=== PATIENT | female | born 1970 | race Caucasian/White ===

== ENCOUNTER → 2016-10-22 | Outpatient (CLI) | payer OTHER ==
--- NOTE | 2016-10-22 12:13 | REP ---
PELVIC ULTRASOUND: Real-time sonographic evaluation of the pelvis performed utilizing transabdominal and endovaginal technique. Bladder measures 4.5 x 6.0 x 3.0 cm. Uterus measures 8.8 x 3.7 x 4.7 cm. Endometrial stripe measures 10 mm. There is no endometrial fluid collection. No myometrial abnormalities are seen. The ovaries appear normal in size and echotexture, right ovary measuring 3.4 x 2.3 x 3.2 cm and left ovary 3.5 x 1.6 x 2.9 cm. There is no adnexal mass or free fluid. Blood flow is seen in each ovary with duplex Doppler evaluation, no torsion. RI of the right ovary 0.61 and left ovary 0.53. There is mild fluid in the cervical canal. IMPRESSION: Essentially negative pelvic ultrasound as above. There is mild fluid in the cervical canal. Signed by Deng Mcnamara MD 10/22/2016 01:30 P
== END ==
LOC: M RAD 10:14
PROVIDERS: ATTEND Obstetrics & Gynecology
DX: D25.9 Leiomyoma of uterus, unspecified (principal)

== ENCOUNTER 2018-02-13 17:02 | Emergency (ER) | payer OTHER ==
[2018-02-13 19:03] LABS: BASO # 0.1 10^3/uL (0.0-0.2); BASO % 0.6 % (0.0-1.0); EOS # 0.2 10^3/uL (0.0-0.50); EOS % 1.3 % (0.0-3.0); HEMATOCRIT 40.6 % (36.0-47.0); HEMOGLOBIN 13.7 g/dl (12.0-15.5); IMMATURE GRANULOCYTE % 0.3 % (0-3.0); LYMPH # 2.2 10^3/uL (1.5-4.5); LYMPH % 17.9 % (24.0-44.0); MEAN CORPUSCULAR HEMOGLOBIN 30.2 pg (27.0-33.0); MEAN CORPUSCULAR HGB CONC 33.7 g/dl (32.0-36.5); MEAN CORPUSCULAR VOLUME 89.4 fl (80.0-96.0); MONO # 0.8 10^3/uL (0.0-0.8); MONO % 6.6 % (0.0-5.0); NEUTROPHILS # 9.1 10^3/uL (1.8-7.7); NEUTROPHILS % 73.3 % (36.0-66.0); PLATELET COUNT, AUTOMATED 191 10^3/uL (150-450); RED BLOOD COUNT 4.54 10^6/uL (4.00-5.40); RED CELL DISTRIBUTION WIDTH 11.8 % (11.5-14.5); WHITE BLOOD COUNT 12.4 10^3/uL (4.0-10.0)
[2018-02-13 19:22] LABS: CONTROL LINE HCG INT CTR LINE PRESENT; HCG, SERUM QUALITATIVE NEGATIVE (NEGATIVE)
[2018-02-13 19:27] LABS: ANION GAP 7 MEQ/L (8-16); BLOOD UREA NITROGEN 15 MG/DL (7-18); CALCIUM LEVEL 8.6 MG/DL (8.5-10.1); CARBON DIOXIDE LEVEL 28 MEQ/L (21-32); CHLORIDE LEVEL 107 MEQ/L (98-107); CK-MB VALUE MASS < 1.0 NG/ML (<3.6); CPK CREATINE PHOSPHOKINASE 76 U/L (26-192); CREATININE FOR GFR 0.78 MG/DL (0.55-1.30); GLOMERULAR FILTRATION RATE > 60.0 (>58); GLUCOSE, FASTING 83 MG/DL (70-100); MAGNESIUM LEVEL 2.2 MG/DL (1.8-2.4); MB/CK RELATIVE INDEX 1.31 (< OR =4); POTASSIUM SERUM 3.4 MEQ/L (3.5-5.1); SODIUM LEVEL 142 MEQ/L (136-145); TROPONIN I < 0.02 NG/ML (< 0.10)
== END 2018-02-13 20:45 | disposition home or self-care (01) ==
LOC: M ED 17:02
DX: R20.2 Paresthesia of skin (principal); R00.1 Bradycardia, unspecified; Z79.899 Other long term (current) drug therapy
CPT/HCPCS: 70450

== ENCOUNTER → 2018-10-24 | Outpatient (REF) | payer OTHER ==
[~2018-10-24] MED LIST: MULTCAP8 PO
== END ==
LOC: M SFHCLERA 19:14
PROVIDERS: ATTEND Physician Assistant
DX: R39.9 Unspecified symptoms and signs involving the genitourinary system (principal)

== ENCOUNTER → 2020-05-16 | Outpatient (CLI) | payer OTHER | LOC: M LABSMTC 11:30 | PROVIDERS: ATTEND Family Medicine | DX: Z11.59 Encounter for screening for other viral diseases (principal); Z20.828 Contact with and (suspected) exposure to other viral communicable diseases ==

== ENCOUNTER 2020-06-03 08:20 | Day surgery (SDC) | payer OTHER ==
[~2020-06-03 08:20] MED LIST changes: +ACETAMINOPHEN 650 MG SUPP ONE; +KETOROLAC 60MG 2ML VIAL ONE; +LIDOCAINE 2% 100MG/5ML SDV (FOR ANES.) ONE; +MIDAZOLAM INJ 2MG/2ML VIAL (J2250 PER 1MG) ONE; +ONDANSETRON 4MG/2ML VIAL ONE; +dexameTHASONE 4 MG/ML 1ML VIAL (J1100 PER 1MG) ONE; +propofoL 200 MG/20 ML VIAL ONE
[2020-06-03] MEDS ORDERED: ONDANSETRON 4MG/2ML VIAL As Ordered ONE (09:00)
[2020-06-03] MEDS ORDERED: LIDOCAINE 2% 100MG/5ML SDV (FOR ANES.) As Ordered ONE (09:00)
[2020-06-03] MEDS ORDERED: MIDAZOLAM INJ 2MG/2ML VIAL (J2250 PER 1MG) As Ordered ONE (09:00)
[2020-06-03] MEDS ORDERED: propofoL 200 MG/20 ML VIAL As Ordered ONE (09:00)
[2020-06-03] MEDS ORDERED: dexameTHASONE 4 MG/ML 1ML VIAL (J1100 PER 1MG) As Ordered ONE (09:00)
[2020-06-03] MEDS ORDERED: KETOROLAC 60MG 2ML VIAL As Ordered ONE (10:30)
--- NOTE | 2020-07-25 10:44 | RO ---
DATE OF PROCEDURE: 06/03/2020 PREOPERATIVE DIAGNOSIS: Abnormal uterine bleeding. POSTOPERATIVE DIAGNOSIS: Abnormal uterine bleeding. OPERATION PROPOSED: Hysteroscopy, dilatation and curettage, and Pap smear. OPERATION PERFORMED: Hysteroscopy, dilatation and curettage, and Pap smear. ANESTHESIA: General. ESTIMATED BLOOD LOSS: Less than 20 mL. SURGEON: Gabriel Freeman MD WELL TREATMENT OFFSIDER: Dr. Glenn Morgan PROCEDURE IN DETAIL: After an adequate time-out, prepped and draped in the lithotomy position. Sotomayor catheter in the bladder draining clear urine. Acetaminophen suppository 1300 mg per rectum. Weighted speculum in the vagina. Single-toothed tenaculum on the anterior lip of the cervix. A cervical Pap smear was performed and sent off to pathology under a separate cover. Reprepping and draping, again, with adequate time-out. Weighted speculum in the vagina. Single-toothed tenaculum on the anterior lip of the cervix. The patient has significant cervical stenosis. We were able to, using the smallest dilator, dilate up the cervix and blackish material came out because of the cervical stenosis. The patient was sounded to a depth of 9 cm. We were able to dilate up to a Hegar 7. The hysteroscope was introduced. Panoramic review revealed a fundal area which was normal, very thin endometrium. Ostium on the right and on the left was normal. Anterior and posterior suero were normal. On the way out, we noticed endocervical polyp in the mid section of the cervix. This was removed and sent to pathology under a separate cover. Curettage of the uterine cavity was done and that was sent under a separate cover. The estimated amount of fluids used was 125 mL in and 125 mL out. All instruments were removed. The Sotomayor catheter was removed. The uterus was replaced in anatomical position. The patient was sent back to the recovery room in good condition. BETZAIDA
== END 2020-06-03 11:30 | disposition home or self-care (01) ==
LOC: M SDC 08:20
PROVIDERS: ATTEND Obstetrics & Gynecology
DX: N92.6 Irregular menstruation, unspecified (principal); N88.8 Other specified noninflammatory disorders of cervix uteri; N93.9 Abnormal uterine and vaginal bleeding, unspecified; N84.1 Polyp of cervix uteri; Z79.899 Other long term (current) drug therapy; Z12.4 Encounter for screening for malignant neoplasm of cervix
CPT/HCPCS: 57410; 58558; 80048; 84702; 85027; 88305; G0123; J1100; J1885; J2250; J2405

== ENCOUNTER → 2020-06-03 | Outpatient (REF) | payer OTHER ==
[2020-06-05 08:10] LABS: HEMATOCRIT 38.9 % (36.0-47.0); HEMOGLOBIN 12.4 g/dl (12.0-15.5); MEAN CORPUSCULAR HEMOGLOBIN 27.8 pg (27.0-33.0); MEAN CORPUSCULAR HGB CONC 31.9 g/dl (32.0-36.5); MEAN CORPUSCULAR VOLUME 87.2 fl (80.0-96.0); PLATELET COUNT, AUTOMATED 209 10^3/uL (150-450); RED BLOOD COUNT 4.46 10^6/uL (4.00-5.40); WHITE BLOOD COUNT 6.9 10^3/uL (4.0-10.0)
[2020-06-07 23:09] LABS: BLOOD UREA NITROGEN 13 MG/DL (7-18); CARBON DIOXIDE LEVEL 28 MEQ/L (21-32); CHLORIDE LEVEL 109 MEQ/L (98-107); CREATININE FOR GFR 0.82 MG/DL (0.55-1.30); GLOMERULAR FILTRATION RATE > 60.0 (>58); GLUCOSE, FASTING 85 MG/DL (70-100); HCG, SERUM QUANTITATIVE < 1.0 MIU/ML; POTASSIUM SERUM 4.2 MEQ/L (3.5-5.1); SODIUM LEVEL 141 MEQ/L (136-145)
== END ==
LOC: M LAB REF 08:00
PROVIDERS: ATTEND Obstetrics & Gynecology
DX: N92.6 Irregular menstruation, unspecified (principal); N88.8 Other specified noninflammatory disorders of cervix uteri

== ENCOUNTER → 2020-12-24 | Outpatient (REF) | payer OTHER ==
[~2020-12-24] MED LIST changes: +ACET-683 PO; -ACETAMINOPHEN 650 MG SUPP ONE; +ALIG4CAP PO; +CHOL20002 PO; +DULO1CAP4 PO; +FERR325T3 PO; -KETOROLAC 60MG 2ML VIAL ONE; -LIDOCAINE 2% 100MG/5ML SDV (FOR ANES.) ONE; +MELO15TA28 PO; -MIDAZOLAM INJ 2MG/2ML VIAL (J2250 PER 1MG) ONE; -ONDANSETRON 4MG/2ML VIAL ONE; -dexameTHASONE 4 MG/ML 1ML VIAL (J1100 PER 1MG) ONE; -propofoL 200 MG/20 ML VIAL ONE
[2020-12-24 15:50] LABS: PLATELET COUNT, AUTOMATED 253 10^3/uL (150-450)
[2020-12-24 16:04] LABS: INR 0.96
[2020-12-24 16:06] LABS: COLLAGEN EPINEPHRINE 139 SECONDS (74-162)
== END ==
LOC: M LAB REF 15:16
PROVIDERS: ATTEND Physical Medicine & Rehabilitation
DX: M43.16 Spondylolisthesis, lumbar region (principal)

== ENCOUNTER → 2021-01-08 | Outpatient (CLI) | payer OTHER ==
[2021-01-08 11:44] LABS: FREE T4 0.82 NG/DL (0.76-1.46); THYROID STIMULATING HORMONE 1.44 uIU/ML (0.358-3.740)
[2021-01-08 11:45] LABS: FOLATE 11.9 NG/ML
== END ==
LOC: M LAB 10:11
PROVIDERS: ATTEND Internal Medicine Gastroenterology
DX: D50.9 Iron deficiency anemia, unspecified (principal)

== ENCOUNTER → 2021-03-10 | Day surgery (SDC) | payer OTHER ==
[~2021-03-10] VITALS: Ht 152.4 cm; Wt 58.1 kg
[~2021-03-10] MED LIST changes: +D31000TA2 PO; +FAMO40TA3 PO; +FERR325T19 PO; +LIDOCAINE 2% 100MG/5ML SDV (FOR ANES.) As Ordered ONE; +NS 1,000 ML IV ONE; +fentaNYL 100 MCG/2 ML INJECTION (J3010) As Ordered ONE; +propofoL 200 MG/20 ML VIAL As Ordered ONE
--- NOTE | 2021-03-10 12:59 | ROOR ---
Patient Name: Minal Gallegos Procedure Date: 03/10/2021 12:47 PM Date of : 1970 Age: 50 Room: [facility] Gender: Female Note Status: Finalized Procedure: Upper GI endoscopy Indications: Iron deficiency anemia Providers: Viral Bustillos MD Referring MD: Ace Olmedo Do Requesting Provider: Medicines: Monitored Anesthesia Care Complications: No immediate complications. Procedure: Pre-Anesthesia Assessment: - The heart rate, respiratory rate, oxygen saturations, blood pressure, adequacy of pulmonary ventilation, and response to care were monitored throughout the procedure. The Endoscope was introduced through the mouth, and advanced to the second part of duodenum. The upper GI endoscopy was accomplished without difficulty. The patient tolerated the procedure well. Findings: The esophagus was normal. The stomach was normal. The examined duodenum was normal. Biopsies for histology were taken with a cold forceps in the second portion of the duodenum and in the third portion of the duodenum for evaluation of celiac disease. Impression: - Normal esophagus. - Normal stomach. - Normal examined duodenum. - Biopsies were taken with a cold forceps for evaluation of celiac disease. Recommendation: - Observe patient's clinical course. Procedure Code(s): --- Professional --- 63513, Esophagogastroduodenoscopy, flexible, transoral; with biopsy, single or multiple Diagnosis Code(s): --- Professional --- D50.9, Iron deficiency anemia, unspecified CPT copyright 2019 [employer]. All rights reserved. The codes documented in this report are preliminary and upon journeyman millwright review may be revised to meet current compliance requirements. Viral Bustillos MD Viral Bustillos MD 03/10/2021 12:59:30 PM Electronically signed by Viral Bustillos MD Number of Addenda: 0 Note Initiated On: 03/10/2021 12:47 PM Estimated Blood Loss: Estimated blood loss: none.
--- NOTE | 2021-03-10 13:18 | ROOR ---
Patient Name: Minal Gallegos Procedure Date: 03/10/2021 12:49 PM Date of : 1970 Age: 50 Room: [facility] Gender: Female Note Status: Finalized Procedure: Colonoscopy Indications: Iron deficiency anemia Providers: Viral Bustillos MD Referring MD: Ace Olmedo Do Requesting Provider: Medicines: Monitored Anesthesia Care Complications: No immediate complications. Procedure: Pre-Anesthesia Assessment: - The heart rate, respiratory rate, oxygen saturations, blood pressure, adequacy of pulmonary ventilation, and response to care were monitored throughout the procedure. The Colonoscope was introduced through the anus and advanced to 10 cm into the ileum. The colonoscopy was performed without difficulty. The patient tolerated the procedure well. The quality of the bowel preparation was good. Findings: The perianal and digital rectal examinations were normal. Small Internal Hemorrhoids. The entire examined colon appeared normal on direct and retroflexion views. The terminal ileum appeared normal. Impression: - Small Internal Hemorrhoids. - The colon is normal on direct and retroflexion views. - The examined portion of the ileum was normal. - No specimens collected. Recommendation: - Continue present medications. Procedure Code(s): --- Professional --- 08077, Colonoscopy, flexible; diagnostic, including collection of specimen(s) by brushing or washing, when performed (separate procedure) Diagnosis Code(s): --- Professional --- D50.9, Iron deficiency anemia, unspecified CPT copyright 2019 [employer]. All rights reserved. The codes documented in this report are preliminary and upon seo assistant review may be revised to meet current compliance requirements. Viral Bustillos MD Viral Bustillos MD 03/10/2021 1:18:43 PM Electronically signed by Viral Bustillos MD Number of Addenda: 0 Note Initiated On: 03/10/2021 12:49 PM Estimated Blood Loss: Estimated blood loss: none.
[2021-03-10 13:44] VITALS: BP 128/67
== END | disposition home or self-care (01) ==
LOC: M OPP 11:15
PROVIDERS: ATTEND Internal Medicine Gastroenterology
DX: D50.9 Iron deficiency anemia, unspecified (principal); K64.8 Other hemorrhoids; Z79.899 Other long term (current) drug therapy; Z88.8 Allergy status to other drugs, medicaments and biological substances
CPT/HCPCS: 43239; 45378; 88305; J3010

== ENCOUNTER → 2021-06-10 | Outpatient (CLI) | payer OTHER ==
[~2021-06-10] MED LIST changes: -LIDOCAINE 2% 100MG/5ML SDV (FOR ANES.) As Ordered ONE; -NS 1,000 ML IV ONE; -fentaNYL 100 MCG/2 ML INJECTION (J3010) As Ordered ONE; -propofoL 200 MG/20 ML VIAL As Ordered ONE
--- NOTE | 2021-06-10 13:55 | REP ---
INDICATION: SACROILIITIS. COMPARISON: None. TECHNIQUE: 3T multiplanar MRI imaging of the sacroiliac joints was obtained using various sequences. FINDINGS: The SI joints are non fused. No abnormal signal is seen on either the sacral or iliac side of either sacroiliac joint. There is no abnormal fluid. There is partial lumbarization of S1 on the left. There is no evidence of a mass or mass effect. 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 IMPRESSION: Chronic changes as described above. There is no evidence of an acute abnormality. <Electronically signed by Tyree Terry > 06/10/21 [id number]
== END ==
LOC: M PLAIMG 12:36
PROVIDERS: ATTEND Physician Assistant
DX: M46.1 Sacroiliitis, not elsewhere classified (principal)

== ENCOUNTER → 2022-04-30 | Outpatient (CLI) | payer OTHER ==
[~2022-04-30] MED LIST changes: +B-12100021 PO; -D31000TA2 PO; +IBUP200T45 PO; +VITA100093 PO
== END ==
LOC: M RAD 07:50
PROVIDERS: ATTEND Podiatrist Foot & Ankle Surgery
DX: M79.671 Pain in right foot (principal)
CPT/HCPCS: 78315; A9503

== ENCOUNTER → 2025-04-04 | Outpatient (CLI) | payer OTHER ==
[~2025-04-04] MED LIST changes: -ALIG4CAP PO; +ALIG4CAP3 PO; +BUPR75TA5
== END ==
LOC: M EKG 10:11
PROVIDERS: ATTEND Student in an Organized Health Care Education/Training Program
DX: R00.1 Bradycardia, unspecified (principal)